=== PATIENT | male | born 1930 | race Caucasian/White ===

== ENCOUNTER 2018-06-14 08:52 | Inpatient (IN) | payer OTHER ==
[2018-06-03 08:57] LABS: ABSOLUTE BASOPHILS 0.1 thou/uL (0.0-0.2); ABSOLUTE EOSINOPHILS 0.3 thou/uL (0.0-0.7); ABSOLUTE LYMPHOCYTES 1.2 thou/uL (0.8-5.3); ABSOLUTE MONOCYTES 0.5 thou/uL (0.0-1.2); ABSOLUTE NEUTROPHILS 2.8 thou/uL (1.6-8.1); BASOPHILS 1.2 %; EOSINOPHILS 6.7 %; HEMATOCRIT 42.1 % (42.0-52.0); HEMOGLOBIN 14.2 gm/dL (14.0-18.0); LYMPHOCYTES 24.6 %; MCH 32.8 pg (26.0-34.0); MCHC 33.7 g/dL (28.0-37.0); MCV 97.4 fL (80.0-100.0); MONOCYTES 11.2 %; MPV 8.8 fl. (7.2-11.1); NUCLEATED RBCS 0 /100WBC; PLATELET COUNT* 158 thou/uL (150-400); POLYS 56.3 %; RBC 4.32 mil/uL (4.50-6.00); WBC 4.9 thou/uL (4.0-11.0)
[2018-06-03 09:07] LABS: APTT 26.4 Seconds (25.0-31.3)
[2018-06-03 09:12] LABS: ALBUMIN 3.8 g/dL (3.4-5.0); CALCIUM 9.2 mg/dL (8.5-10.1); CREATININE 0.9 mg/dL (0.6-1.3); POTASSIUM 4.1 mmol/L (3.5-5.1); TOTAL BILIRUBIN 0.5 mg/dL (<0.1-1.0)
--- NOTE | 2018-06-03 09:48 | EKG ---
[place] [address] ELECTROCARDIOGRAM REPORT Name: KEEGAN HASKINS KEON Room: PRE [facility] M.R.#: [id number] Admission: Attend Phys: Jorge Luis Tse DO Discharge: Date of : [birth year] Report #: [id number] THIS REPORT FOR: //name// [facility] Test Date: 2018-06-03 Test Time: 09:13:04 Pat Name: KEEGAN HASKINS Department: Room: Gender: M Field Contractor: [facility] : 1930 Requested By: Jorge Luis Tse Order Number: [id number] Reading MD: Leno Muñoz Measurements Intervals [place] Rate: 58 P: 39 MI: 261 QRS: -42 QRSD: 143 T: 59 QT: 434 QTc: 427 Interpretive Statements Sinus rhythm Left atrial enlargement Prolonged [place] interval Left bundle branch block Compared to ECG 12/02/2005 12:38:20 Left bundle-branch block now present Sinus bradycardia no longer present Ventricular premature complex(es) no longer present Electronically Signed On 06-03-2018 9:48:22 CDT by Leno Muñoz [email or web address] <ELECTRONICALLY SIGNED> By: Leno Muñoz MD, [facility] 0448 2 2 Leno Muñoz MD, [facility] /EPI
[2018-06-03 11:13] LABS: ESR (SEDRATE) 10 mm/hr (0-20)
[~2018-06-14] VITALS: Ht 177.8 cm; Wt 76.7 kg
[~2018-06-14 08:52] MED LIST: ADULT LOW DOSE81 MG PO; CARAFATE 1 GM TA1 GM PO; COLESTID1 GM PO; FISH OIL SOFTG1 EACH PO; LIPEX10 MG PO; LORTAB 5-500 T1 EAC1 PO; NORCO 5-325 TA1 EACH PO; PEPCID40 MG PO; PRAVACHOL40 MG PO; PREDNISONE 20 M20 MG PO; PRINIVIL20 MG PO; [UNRECOGNIZED DRUG - OTHER] PO
[2018-06-14 09:49] VITALS: BP 159/80
[2018-06-14 15:40] VITALS: BP 132/74
--- NOTE | 2018-06-14 17:12 | NUR ---
PT ARRIVED FROM SURGERY ABOUT 1500. VITALS STABLE. DENIED PAIN. DENIED NAUSEA. DRESSING IS CLEAN, DRY AND INTACT. ON 1LO2 AND CAPNO. ICE PACK IN PLACE. IV PATENT, INFUSING. NOT GOT UP DURING SHIFT SO FAR. FAMILY IN ROOM. CALL LIGHT WITHIN REACH. FALL PRECAUTIONS IN PLACE. WILL CONTINUE TO MONITOR.
[2018-06-14 18:48] VITALS: BP 155/95
[2018-06-14 20:00] VITALS: BP 117/54
[2018-06-15 00:30] VITALS: BP 120/55
[2018-06-15 03:30] VITALS: BP 103/61
[2018-06-15 04:08] LABS: HEMATOCRIT 36.9 % (42.0-52.0); HEMOGLOBIN 12.4 gm/dL (14.0-18.0)
[2018-06-15 08:00] VITALS: BP 108/53
--- NOTE | 2018-06-15 08:27 | NUR ---
Alert and oriented x 4. Right knee island mepilex dressing dry and intact. He states he has feeling in his rt leg and foot. He is eating and drinking well. He is tolerating oral pain meds, no nausea. he had pain meds x 2. Vitals are stable. He has slept well.
[2018-06-15 11:55] VITALS: BP 118/66
--- NOTE | 2018-06-15 15:42 | NUR ---
PT.UP IN RECLINER. ,DAUGHTER AND DAUGHTER'S VISITING. PT.AND LIVE TOGETHER IN A HOUSE. HE IS NORMALLY INDEPENDENT. HE USES A A CANE LATELY. HE HAS A WALKER AT HOME IF NEEDED. DRIVES BUT NOT ON THE HIGHWAYS. PHYSICAL THERAPY SAID PT.MAY NEED SNF PRIOR TO GOING HOME. DISCUSSED WITH THEM. PT.A BIT RELUCTANT. HE SAID HE WOULD LIKE TO GO HOME AT DISCHARGE BUT HIS INSURANCE IS GIVING THEM TROUBLE ABOUT HAVING HOME HEALTH. GAVE A LIST OF FACILITIES THAT CONTRACT WITH HIS INSURANCE. TOLD THEM TO LOOK AT IT AND DEPENDING ON HOW HE PROGRESSESS WITH THERAPY, I COULD MAKE A REFERRAL FOR HIM. WILL FOLLOW.
[2018-06-15 15:45] VITALS: BP 110/58
--- NOTE | 2018-06-15 17:53 | NUR ---
PT A&Ox4. VITALS STABLE. ON RA. MEPILEX IS CLEAN, DRY AND INTACT. TEDs, SCDs AND ICE PACK IN PLACE. UP WITH 1, NEEDS DIRECTED FREQUENTLY. IV IN L FA PATENT. POSSIBLY GOING SKILLED TOMORROW. PAIN CONTROLLED WITH OXY IR. DENIED NAUSEA. FALL PRECAUTIONS IN PLACE. DAUGHTER AND IN ROOM. CALL LIGHT WITHIN REACH. WILL CONTINUE TO MONITOR.
[2018-06-15 20:00] VITALS: BP 120/55
[2018-06-16 04:09] LABS: HEMATOCRIT 36.7 % (42.0-52.0); HEMOGLOBIN 12.2 gm/dL (14.0-18.0)
--- NOTE | 2018-06-16 05:28 | NUR ---
ASSUMED PATIENT CARE AT 1900. PATIENT ALERT AND ORIENTED TIMES FOUR. FAMILY AT BEDSIDE. SPOUSE STAYED THROUGH THE NIGHT AND PROVIDED CARE FOR PATIENT. HELPED WITH URINAL ETC. VERBAL COMPLAINTS OF MINOR PAIN NOTED, CONTROLLED WITH ORAL PAIN MEDICATION. DRESSING C/D/I. FIRST ASSIST AND HOURLY ROUNDING COMPLETED DOCUMENTED.
[2018-06-16 08:00] VITALS: BP 119/58
--- NOTE | 2018-06-16 13:14 | NUR ---
SPOKE WITH PT., AND DAUGHTER. IF NEEDED, THEY WANT TO GO TO [facility]. TOURED YESTERDAY. REFERRAL FAXED TO [facility]. DAUGHTER SAID HER MOM AND DAD ARE PRETTY MUCH IN AGREEMENT TO GO TO SNF. EXPLAINED THAT INSURANCE HAS TO AUTHORIZE HIM TO GO TO SKILLED BEFORE WE CAN DISCHARGE HIM.
--- NOTE | 2018-06-16 14:44 | EKG ---
[place] [address] ELECTROCARDIOGRAM REPORT Name: KEEGNA HASKINS Room: [address] ADM IN M.R.#: [id number] Admission: 06/14/18 Attend Phys: Elton Juárez Discharge: Date of : [birth year] Report #: [id number] THIS REPORT FOR: //name// 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1930 Requested By: Bree Villa Order Number: [id number] [place] MD: Yuval Rich Measurements Intervals [place] Rate: 78 P: 61 KS: 228 QRS: -34 QRSD: 135 T: 98 QT: 413 QTc: 471 Interpretive Statements Sinus rhythm Prolonged KS interval Left atrial enlargement Left bundle branch block Compared to ECG 06/03/2018 09:13:04 No significant changes Electronically Signed On 06-16-2018 14:44:10 CDT by Yuval Rich [email or web address] <ELECTRONICALLY SIGNED> By: Yuval Rich MD, [facility] 06/16/18 1444 1349 [id number] Yuval Rich MD, [facility] /EPI
[2018-06-16 16:43] VITALS: BP 163/78
--- NOTE | 2018-06-16 17:24 | NUR ---
PT A&Ox4 BUT SLIGHTLY CONFUSED AT TIMES. PT FAMILY IN ROOM ALL DAY. VITALS STABLE. IV PATENT. WORKED WELL DURING MORNING THERAPY. ATTEMPTED TO GET HIM UP TO TRANSFER FROM CHAIR TO BED AFTER LUNCH AND IT TOOK A MAX ASSIST OF 2 USING GAITBELT AND WALKER TO TRANSFER THE 5 FEET. ONLY ABLE TO STAND AT BEDISIDE AND TAKE 2 STEPS WITH THERAPY DURING THE AFTERNOON PORTION. PT CURRENTLY RESTING IN BED. PAIN CONTROLLED WITH OXY IR AND TRAMADOL. TOLERATING DIET. FALL PRECAUTIONS IN PLACE. CALL LIGHT WITHIN REACH. WILL CONTINUE TO MONITOR.
[2018-06-16 19:55] VITALS: BP 133/67
[2018-06-17 04:43] LABS: ABSOLUTE EOSINOPHILS 0.1 thou/uL (0.0-0.7); ABSOLUTE MONOCYTES 1.3 thou/uL (0.0-1.2); BASOPHILS 0.5 %; EOSINOPHILS 0.7 %; HEMATOCRIT 38.9 % (42.0-52.0); HEMOGLOBIN 13.1 gm/dL (14.0-18.0); LYMPHOCYTES 11.5 %; MCH 33.3 pg (26.0-34.0); MCHC 33.7 g/dL (28.0-37.0); MCV 98.9 fL (80.0-100.0); MONOCYTES 15.4 %; MPV 9.7 fl. (7.2-11.1); NUCLEATED RBCS 0 /100WBC; PLATELET COUNT* 142 thou/uL (150-400); POLYS 71.9 %; RBC 3.94 mil/uL (4.50-6.00); RDW-CV 13.1 % (10.5-14.5); WBC 8.3 thou/uL (4.0-11.0)
--- NOTE | 2018-06-17 04:46 | NUR ---
ASSUMED PATIENT CARE AT 1900. PATIENT ALERT AND ORIENTED TIMES FOUR. SPOUSE AT BEDSIDE THROUGH THE NIGHT. MINOR COMPLAINTS OF PAIN, CONTROLLED WITH ORAL MEDICATION. SOME NAUSEA THIS AM WITHOUT EMESIS. IV MEDICATION GIVEN. DIAMOND SANDER AND HOURLY ROUNDING COMPLETED CHARTED. DRESSING C/D/I.
[2018-06-17 05:02] LABS: CALCIUM 9.1 mg/dL (8.5-10.1); CREATININE 0.9 mg/dL (0.6-1.3)
--- NOTE | 2018-06-17 06:36 | NUR ---
PATIENTS DAUGHTER CALLED, DEMANDED TO SPEAK TO THE PREVENTIVE MAINTENANCE COORDINATOR "RIGHT NOW". WHEN TOLD THAT THE SUPERVISORS WERE IN THE MIDDLE OF SHIFT CHANGE AND I COULD TAKE HER NUMBER AND THE PREVENTIVE MAINTENANCE COORDINATOR WILL CALL HER SOON THEY COULD. DAUGHTER, HARLEEN, STATED "I UNDERSTAND HOW THINGS WORK UP THERE NOW" "COULD YOU TELL ME WHY MY DAD IS IN SO MUCH PAIN AND IT IS NOT BEING CONTROLLED" EXPLAINED TO HARLEEN THAT HE GETS PAIN MEDICATION WHEN HE REQUESTS IT AND THAT HE HAS BEEN REQUESTING LESS STRONG PAIN MEDICATION" DAUGHTER VERY SIERRA, DEMANDED THAT HER FATHER GET SCHEDULED PAIN MEDICATION "EVEN IF HE IS NOT ASKING FOR THAT" SPOKE TO SPOUSE AND PATIENT WHO EXPRESSED THAT THEY ARE "VERY HAPPY WITH EVERYONE HERE" AND "SHE IS JUST FRUSTRATED THAT SHE CANNOT BE HERE" TOOK SIL NUMBER AND PASSED IT ON TO PREVENTIVE MAINTENANCE COORDINATOR
[2018-06-17 08:00] VITALS: BP 134/69
--- NOTE | 2018-06-17 09:42 | OP ---
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 PROCEDURE: Right unicompartmental knee arthroplasty. SURGEON: Jorge Luis Tse DO. HEAD RIGGER: Fco Ramirez. SECOND TOOL TECHNICIAN: DAISY Weems. ANESTHESIA: General LMA. COMPLICATIONS: None. ANTIBIOTICS: 2 grams Ancef IVPB 30 minutes prior to incision, 1 gram of TXA IV prior to incision. IMPLANTS: Biomet Hubbard unicompartmental knee system with a medium femoral component, a right medial size E tibial tray, a 3 mm anatomic meniscal bearing and 1 bag of Palacos cement. SPECIMENS: None. BLOOD LOSS: Roughly 75 mL. INDICATIONS FOR SURGERY: The patient is an 87-year-old male with severe right knee pain. He has severe degenerative joint disease of his right knee with complete loss of medial joint space. He is a candidate for unicompartmental knee arthroplasty based on clinical exam as well as x-ray exam, and he wishes to do so if at all possible. Risks and complications of both the uni and total knee arthroplasty have been discussed in detail with the patient and family. All questions and concerns were answered. A signed informed consent has been attached to chart, may refer to, and his knee is marked preoperatively for timeout technique. DESCRIPTION OF PROCEDURE: The patient was taken to the [place] [address] OPERATIVE REPORT Name: KEEGAN HASKINS Room: [address] IN [facility].#: [id number] Admission: 06/14/18 Attend Phys: Elton Juárez Discharge: Date of : [birth year] Report #: [id number] placed on the operating room table in supine position. Following general LMA anesthetic, the right leg was prepped and draped in the usual sterile fashion with tourniquet on the proximal right femur. The timeout technique was utilized to verify appropriate surgical site and concerned procedures. The tourniquet was inflated to 295 mmHg pressure. A medial arthrotomy incision was made approximately 6-7 cm in length along the medial aspect of the patella through skin and subcutaneous tissue down to the capsule. The knee capsule was then incised in line with the skin incision and a median parapatellar incision. The patella is retracted laterally. Medial capsule was retracted medially and the knee is examined. There was noted to be an intact ACL, and the lateral femoral condyle was benign as well as the lateral tibial plateau. Meniscus is intact. Therefore, decision to proceed with a unicompartmental knee arthroplasty was made. All osteophytes were removed from the knee with a rongeur as well as a small osteotome. The external tibial guide was aligned in all planes, pinned into place at the appropriate depth. The proximal tibia was then resected first with the reciprocating saw along the midline of the intercondylar notch and tibial spine. The oscillating saw was then utilized to remove the small bony wafer approximately 1-2 mm from the lowest point on the tibia. This was removed, and the medial meniscus was removed in its entirety. The appropriate size tibial tray was aligned into place with the knee in 100-110 degrees of flexion. A size 3 spacer was placed. It fit well. The knee was then placed in 20 degrees of flexion and #1 Arauz did not fit. Therefore, a size 4 spigot was obtained. Once the tibial resection was performed, the femoral drill guide was used to provide an intramedullary drill hole 1 cm above the anterior cruciate ligament, posterior cruciate ligament attached with site slightly medial. Intramedullary rosy is placed. The femoral cutting guide was aligned in all planes. The distal femur was then drilled with the two step drill. Once that was performed, the posterior cutting block is applied into place and the posterior condyles resected. The flexion box was checked and found to be appropriate. This was where with the flexion and 20 degrees of extension was checked. The size 4 spigot was placed and the distal femur was reamed. All excess bone was removed. A trial reduction was performed again at 100 degrees and 20 degrees. This gave excellent balance throughout the entire arc of motion. Therefore, the tibial resection was appropriate. The femoral resection was appropriate. Next, the femur was prepared with the posterior checking block. The posterior condyle showed no osteophytes. The proximal anterior aspect of the femur was reamed to keep from impinging with the spacer on extension. Copious irrigation carried out throughout the incision. The tibia was further prepared for the final finned tibial tray by placing the tibial trial in place holding in the appropriate location with a nail. Then, using the oscillating saw to make the tibial cut, this was then fixed appropriately with the curved osteotome. The trial tibial spacer was placed. The trial femoral space was placed. Various sized spacers were placed into the knee, and the knee was checked for full range of motion. The size 3 gave the best range of motion and best stability. Final components were placed on the back table. Trial components were removed. Copious irrigation carried [place] [address] OPERATIVE REPORT Name: KEEGAN HASKINS Room: [address] IN M.R.#: [id number] Admission: 06/14/18 Attend Phys: Elton Juárez Discharge: Date of : [birth year] Report #: [id number] after drilling cement drill holes into the femur and tibia. The posterior capsule of the knee was injected with the anesthetic solution. Cement was mixed one bag on the back table. Cement was placed on the final components as well as then pressurized the cement into the tibia, first placing the tibial tray in the appropriate location impacting it with the appropriate tibial impactor. All excess cement was removed sharply with the use of a [employer] [place]. The femur was then impacted firmly in place after placing a cement into the bone and interstices of the bone with pressurization gun. The femur was then thoroughly impacted, removing all excess cement sharply. A spacer trial was a size 3 was then checked and had excellent range of motion throughout the entire arc of motion with good stability. The final component was obtained. Copious irrigation was performed throughout the knee once again. The final spacer was placed. Knee range of motion was easily 0-130 degrees or better. No tendency towards dislocation of the implant was noted. The tourniquet was deflated. Hemostasis was achieved with use of electrocautery and direct pressure. The knee was held in 90 degrees of flexion with pressurization across the knee until complete cement hardening occurred. The knee was closed with a #1 running Quill in a running fashion throughout the entire arthrotomy. The skin was reapproximated with 2-0 Monocryl subcutaneous sutures, followed by running 3-0 Stratafix subcuticular suture. Skin was reinforced with Dermabond glue. A Mepilex dressing was applied and a thigh high BRENT hose. The patient was taken to recovery room in stable condition. No complications were encountered. ESTIMATED BLOOD LOSS: 75 mL. <ELECTRONICALLY SIGNED> By: Jorge Luis Tse DO 06/17/18 0942 1411 [id number] Luis Tse DO /qi
[2018-06-17] MEDS ORDERED: ELIQUIS5 MG PO (10:59)
[2018-06-17] MEDS ORDERED: OXYCODONE HCL 55 MG PO (10:59)
[2018-06-17] MEDS ORDERED: SENNA PLUS TAB1 EACH PO (11:00)
[2018-06-17] MEDS ORDERED: TRAMADOL 50 MG50 MG PO (11:00)
[2018-06-17] MEDS ORDERED: PAIN RELIEVER500 MG PO (11:00)
[2018-06-17 11:20] VITALS: BP 134/69
--- NOTE | 2018-06-17 16:09 | NUR ---
LEFT MESSAGE FOR [facility] ABOUT 1200 BY LAUREN EVANS TO SEE IF THEY HAD RECEIVED INSURANCE AUTH. SHE HAS NOT CALLED BACK. INFORMED FAMILY.
[2018-06-17 17:47] VITALS: BP 126/62
--- NOTE | 2018-06-17 18:24 | NUR ---
PT A&Ox4 BUT SLIGHTLY CONFUSED. VITALS STABLE. NOT ABLE TO TAKE DIRECTIONS WELL WHEN TAKING STEPS AFTER STANDING UP. AMBULATION IS X2-3 MAX ASSIST. WAITING FOR INSURANCE AUTH FOR SMM. PAIN CONTROLLED WITH XS TYLENOL AND TRAMADOL. MILK OF MAG GIVEN FOR CONSTIPATION. AND OTHER FAMILY IN ROOM ALL DAY. FALL PRECAUTIONS IN PLACE. CALL LIGHT WITHIN REACH. WILL CONTINUE TO MONITOR.
[2018-06-17 20:00] VITALS: BP 99/55
--- NOTE | 2018-06-18 04:36 | NUR ---
ASSUMED PATIENT CARE AT 1900. PATIENT DENIES PAIN THROUGH THE NIGHT. TYLENOL GIVEN SCHEDULED. ALERT AND ORIENTED TIMES FOUR WITH CONFUSION. SPOUSE STILL REMAINING AT IN ROOM. CREDIT DEPARTMENT MANAGER AND HOURLY ROUNDING OCMPLETED DOCUMENTED
[2018-06-18 08:00] VITALS: BP 127/67
[2018-06-18 09:49] VITALS: BP 127/67
--- NOTE | 2018-06-18 10:58 | NUR ---
[facility] CALLED AND HAS ELENA BHATTI FOR PT.TO COME TO A SKILLED BED THERE. SHE WILL ARRANGE [facility] TRANSPORTATION AT 12-12:30. CM CALLED DAUGHTER,CARLOS ON HER CELL TO INFORM. SHE WILL LET HER MOM AND DAD KNOW. FAXED DISCHARGE SUMMARY,ORTHO PROGRESS NOTE AND CURRENT MED ORDERS TO [facility]. CHART COPIED TO GO WITH PT. JONNATHAN LLANOS TO CALL REPORT.
--- NOTE | 2018-06-18 12:35 | NUR ---
DISCHARGE NOTE - PT DISCHARGED TO [facility]IA [facility]. REPORT CALLED TO JONNATHAN RAZA. NO QUESTIONS. CHART COPIED AND SENT WITH PT. ALL BELONGINGS SENT WITH PT AND FAMILY. IV REMOVED.
== END 2018-06-18 12:35 | DRG 470 ==
LOC: M.SUR 08:52 → M.TBA 13:37 → M.ORTHSURG 13:37 → M.SUR 13:44 → M.ORTHSURG 14:58
PROVIDERS: Family Medicine; Orthopaedic Surgery; ADMIT Internal Medicine
PROC: 0SRC0L9 Replacement of Right Knee Joint with Medial Unicondylar Synthetic Substitute, Cemented, Open Approach (ICD-10-PCS; principal; 2018-06-14)
DX: M17.11 Unilateral primary osteoarthritis, right knee (principal); F05 Delirium due to known physiological condition; I10 Essential (primary) hypertension; E78.5 Hyperlipidemia, unspecified; I25.10 Atherosclerotic heart disease of native coronary artery without angina pectoris; Z95.1 Presence of aortocoronary bypass graft; Z79.82 Long term (current) use of aspirin; Z79.899 Other long term (current) drug therapy; Z82.3 Family history of stroke; Z82.69 Family history of other diseases of the musculoskeletal system and connective tissue

== ENCOUNTER → 2018-10-28 | Outpatient (CLI) | payer OTHER ==
[~2018-10-28] MED LIST changes: +ELIQUIS5 MG PO; +OXYCODONE HCL 55 MG PO; +PAIN RELIEVER500 MG PO; +SENNA PLUS TAB1 EACH PO; +TRAMADOL 50 MG50 MG PO
== END ==
LOC: M.ULTRA 15:30
DX: M79.661 Pain in right lower leg (principal); M79.89 Other specified soft tissue disorders; Z96.651 Presence of right artificial knee joint